=== PATIENT | male | born 1960 | race Caucasian/White ===

== ENCOUNTER 2024-01-14 14:13 | Emergency (ER) | payer SELFPAY ==
[~2024-01-14] VITALS: Ht 185.4 cm; Wt 95.0 kg
[2024-01-14 14:17] VITALS: O2SAT 98
[2024-01-14] MEDS: KETOROLAC 30MG/ML VIAL IM ONE (16:22)
[2024-01-14] MEDS ORDERED: NAPR500T7 MT (18:22)
[2024-01-14 19:05] VITALS: BP 133/77; PULSE 76; RESP 18; TEMP 98
== END 2024-01-14 19:19 | disposition home or self-care (01) ==
LOC: ER 14:13
DX: M54.2 Cervicalgia (principal); I10 Essential (primary) hypertension; Z98.890 Other specified postprocedural states
CPT/HCPCS: 99285; 72125; 96372; J1885

== ENCOUNTER 2024-06-03 18:28 | Inpatient (IN) | payer MEDICAID, OTHER ==
[~2024-06-03] VITALS: Ht 185.4 cm; Wt 90.7 kg
[~2024-06-03 18:28] MED LIST: NAPR500T7 MT
[2024-06-03] MEDS: ONDANSETRON HCL 4MG/2ML INJ IV STA (19:35)
[2024-06-03] MEDS: MORPHINE SULFATE 4 MG/ML INJ (FOR IV/IM USE) IV STA (19:35)
[2024-06-03 19:41] LABS: BASOPHILS % 0.4 % (0.0-2.0); EOSINOPHILS % 3.8 % (0.0-5.0); HEMATOCRIT. 42.7 % (42.0-52.0); HEMOGLOBIN. 14.4 g/dL (14.0-18.0); LYMPHOCYTES % 44.2 % (20.0-50.0); MEAN CORPUSCULAR HEMOGLOBIN 31.4 pg (28.0-32.0); MEAN CORPUSCULAR HGB CONC 33.8 g/dL (31.0-37.0); MEAN CORPUSCULAR VOLUME 92.9 fL (80.0-94.0); MEAN PLATELET VOLUME 8.9 fl (7.4-10.4); MONOCYTES % 5.5 % (2.0-8.0); NEUTROPHILS % 46.1 % (40.0-76.0); PLATELET 264 x1000/uL (130-400); RED BLOOD CELL COUNT 4.59 mill/uL (4.7-6.1); RED CELL DISTRIBUTION WIDTH 13.4 % (11.6-14.6); WHITE BLOOD COUNT 8.2 x1000/uL (4.5-11.0)
[2024-06-03 19:44] LABS: CHLORIDE 108 mEq/L (98-107); POTASSIUM 3.7 mEq/L (3.5-5.1); SODIUM 139 mEq/L (136-145)
[2024-06-03 19:45] LABS: CARBON DIOXIDE 24 mEq/L (21-32)
[2024-06-03 19:46] LABS: CALCIUM 9.1 mg/dL (8.7-10.4)
[2024-06-03 19:50] LABS: GLUCOSE 137 mg/dL (70-105); UREA NITROGEN BLOOD 11 mg/dL (9-23)
[2024-06-03 20:18] LABS: PROTHROMBIN TIME 10.8 sec (9.6-11.0)
[2024-06-03 22:40] VITALS: BP 133/95; PULSE 70; RESP 19; TEMP 36.5848
[2024-06-04] VITALS: BP 144/97; PULSE 103; RESP 18; TEMP 36.50292; O2SAT 96
[2024-06-04 02:25] LABS: BASOPHILS % 0.4 % (0.0-2.0); EOSINOPHILS % 0.8 % (0.0-5.0); HEMATOCRIT. 40.5 % (42.0-52.0); HEMOGLOBIN. 13.7 g/dL (14.0-18.0); LYMPHOCYTES % 21.6 % (20.0-50.0); MEAN CORPUSCULAR HEMOGLOBIN 31.6 pg (28.0-32.0); MEAN CORPUSCULAR HGB CONC 33.7 g/dL (31.0-37.0); MEAN CORPUSCULAR VOLUME 93.8 fL (80.0-94.0); MEAN PLATELET VOLUME 8.7 fl (7.4-10.4); MONOCYTES % 8.5 % (2.0-8.0); NEUTROPHILS % 68.7 % (40.0-76.0); PLATELET 236 x1000/uL (130-400); RED BLOOD CELL COUNT 4.32 mill/uL (4.7-6.1); RED CELL DISTRIBUTION WIDTH 13.6 % (11.6-14.6); WHITE BLOOD COUNT 9.2 x1000/uL (4.5-11.0)
[2024-06-04 02:39] LABS: CHLORIDE 110 mEq/L (98-107); POTASSIUM 4.1 mEq/L (3.5-5.1); SODIUM 140 mEq/L (136-145)
[2024-06-04 02:40] LABS: CARBON DIOXIDE 25 mEq/L (21-32)
[2024-06-04 02:41] LABS: CALCIUM 9.1 mg/dL (8.7-10.4)
[2024-06-04 02:45] LABS: CREATININE 0.9 mg/dL (0.6-1.3); GLUCOSE 137 mg/dL (70-105)
[2024-06-04 02:46] LABS: UREA NITROGEN BLOOD 10 mg/dL (9-23)
[2024-06-04 02:47] LABS: ALANINE AMINOTRANSFERASE 13 IU/L (10-49); ASPARTATE AMINOTRANSFERASE 16 IU/L (<34)
[2024-06-04 02:48] LABS: ALBUMIN 4.1 g/dL (3.2-4.8); BILIRUBIN TOTAL 0.4 mg/dL (0.1-1.0); PROTEIN TOTAL 6.6 g/dL (6.0-8.3)
[2024-06-04 04:00] VITALS: BP 138/92; PULSE 82; RESP 18; TEMP 36.16956; O2SAT 98
[2024-06-04] MEDS: CEFTRIAXONE 1GM/50ML 50 ML IV SCH (04:32)
[2024-06-04 07:06] LABS: CLARITY URINE CLOUDY (CLEAR); COLOR URINE YELLOW (YELLOW); GLUCOSE URINE NEGATIVE (NEGATIVE); KETONES URINE TRACE (NEGATIVE); LEUKOCYTE ESTERASE URINE 1+ (NEGATIVE); NITRITE URINE NEGATIVE (NEGATIVE); OCCULT BLOOD URINE 3+ (NEGATIVE); PH URINE 5.5 (4.5-8.0); PROTEIN URINE 1+ (NEGATIVE); SPECIFIC GRAVITY URINE 1.015 (1.005-1.030); UROBILINOGEN URINE 0.2 E.U./dL (0.2-1.0)
[2024-06-04 07:24] LABS: BACTERIA URINE 2+; RBC URINE 50-100 /hpf (0-2); SQUAMOUS EPITHELIAL CELL URINE NONE SEEN /lpf (RARE/1+); WBC URINE 15-25 /hpf (0-2); YEAST URINE NONE SEEN
[2024-06-04 12:00] VITALS: BP 144/85; PULSE 76; RESP 18; TEMP 36.3918; TEMP 36.39180; O2SAT 98
[2024-06-04] MEDS ORDERED: CLONIDINE 0.1MG TABLET PO PRN (13:45)
[2024-06-04] MEDS ORDERED: IPRATROPIUM/ALBUTEROL 0.5-3(2.5)MG/3ML NEB HHN PRN (13:45)
[2024-06-04] MEDS ORDERED: ACETAMINOPHEN 325MG TABLET PO PRN ×2 (13:45)
[2024-06-04] MEDS ORDERED: DOCUSATE SODIUM 100MG CAPSULE PO PRN (13:45)
[2024-06-04] MEDS ORDERED: ONDANSETRON HCL 4MG/2ML INJ IV PRN (13:45)
[2024-06-04] MEDS ORDERED: LEVO-65 MT (13:49)
[2024-06-04] MEDS ORDERED: DILTIAZEM HCL 30MG TABLET PO SCH (14:00)
[2024-06-04 18:15] VITALS: BP 144/80; PULSE 75; TEMP 97.9; O2SAT 99
== END 2024-06-04 18:50 | disposition home or self-care (01) | DRG 466 ==
LOC: ER 18:28 → 5WST 20:41 → EDBEDREQTM 20:45 → EDBEDREQ 20:45 → 6EST 22:20
PROVIDERS: ADMIT Internal Medicine; ATTEND Internal Medicine
DX: T83.83XA Hemorrhage due to genitourinary prosthetic devices, implants and grafts, initial encounter (principal); K76.0 Fatty (change of) liver, not elsewhere classified; I10 Essential (primary) hypertension; N40.0 Benign prostatic hyperplasia without lower urinary tract symptoms; Y84.6 Urinary catheterization as the cause of abnormal reaction of the patient, or of later complication, without mention of misadventure at the time of the procedure; N39.0 Urinary tract infection, site not specified; Z79.899 Other long term (current) drug therapy; Z88.8 Allergy status to other drugs, medicaments and biological substances; Y92.89 Other specified places as the place of occurrence of the external cause
CPT/HCPCS: 36415; 76700; 76857; 80048; 80053; 81003; 85025; 86850; 86900; 87186; 99285; J0696; J2270; J2405

== ENCOUNTER 2025-01-16 00:13 | Emergency (ER) | payer OTHER ==
[~2025-01-16] VITALS: Ht 185.4 cm; Wt 91.0 kg
[~2025-01-16 00:13] MED LIST changes: +ASPI-1497 MT; +HYDR12.54 PO; +LIP40 MT; +LISI10TA26 PO; +METO-396 PO; -NAPR500T7 MT
[2025-01-16 00:18] VITALS: O2SAT 99
[2025-01-16 01:21] LABS: BASOPHILS % 0.5 % (0.0-2.0); EOSINOPHILS % 0.8 % (0.0-5.0); HEMATOCRIT. 50.2 % (42.0-52.0); HEMOGLOBIN. 16.5 g/dL (14.0-18.0); LYMPHOCYTES % 39.6 % (20.0-50.0); MEAN CORPUSCULAR HEMOGLOBIN 31.7 pg (28.0-32.0); MEAN CORPUSCULAR HGB CONC 32.8 g/dL (31.0-37.0); MEAN CORPUSCULAR VOLUME 96.5 fL (80.0-94.0); MONOCYTES % 5.8 % (2.0-8.0); NEUTROPHILS % 53.3 % (40.0-76.0); PLATELET 256 x1000/uL (130-400); RED CELL DISTRIBUTION WIDTH 12.9 % (11.6-14.6); WHITE BLOOD COUNT 12.9 x1000/uL (4.5-11.0)
[2025-01-16 01:22] LABS: POTASSIUM 4.1 mEq/L (3.5-5.1)
[2025-01-16 01:28] LABS: CREATININE 1.3 mg/dL (0.6-1.3)
[2025-01-16 01:41] LABS: PROTHROMBIN TIME 11.2 sec (9.6-11.0)
[2025-01-16 02:11] LABS: CLARITY URINE TURBID (CLEAR); COLOR URINE ORANGE (YELLOW); GLUCOSE URINE NEGATIVE (NEGATIVE); KETONES URINE NEGATIVE (NEGATIVE); LEUKOCYTE ESTERASE URINE 2+ (NEGATIVE); NITRITE URINE NEGATIVE (NEGATIVE); OCCULT BLOOD URINE 3+ (NEGATIVE); PROTEIN URINE 4+ (NEGATIVE); SPECIFIC GRAVITY URINE 1.026 (1.005-1.030); UROBILINOGEN URINE 0.2 E.U./dL (0.2-1.0)
[2025-01-16 02:25] LABS: RBC URINE 50-100 /hpf (0-2); SQUAMOUS EPITHELIAL CELL URINE NONE SEEN /lpf (RARE/1+); WBC URINE 15-25 /hpf (0-2)
[2025-01-16 02:27] LABS: BACTERIA URINE TRACE
[2025-01-16] MEDS ORDERED: AMOX1TAB16 MT (02:30)
[2025-01-16 02:46] VITALS: BP 132/84; PULSE 90; RESP 16; TEMP 36.6; O2SAT 99
== END 2025-01-16 07:47 | disposition home or self-care (01) ==
LOC: ER 00:26
DX: R31.9 Hematuria, unspecified (principal); Z79.82 Long term (current) use of aspirin; Z79.899 Other long term (current) drug therapy
CPT/HCPCS: 36415; 80048; 81003; 85025; 99283

== ENCOUNTER 2025-01-23 04:46 | Emergency (ER) | payer OTHER ==
[~2025-01-23] VITALS: Ht 188 cm; Wt 82.0 kg
[~2025-01-23 04:46] MED LIST changes: +AMOX1TAB16 MT
[2025-01-23 05:07] VITALS: O2SAT 97
[2025-01-23 07:03] LABS: CLARITY URINE CLEAR (CLEAR); COLOR URINE YELLOW (YELLOW); GLUCOSE URINE NEGATIVE (NEGATIVE); KETONES URINE TRACE (NEGATIVE); LEUKOCYTE ESTERASE URINE 1+ (NEGATIVE); NITRITE URINE NEGATIVE (NEGATIVE); OCCULT BLOOD URINE NEGATIVE (NEGATIVE); PH URINE 5.5 (4.5-8.0); PROTEIN URINE NEGATIVE (NEGATIVE); SPECIFIC GRAVITY URINE 1.021 (1.005-1.030)
[2025-01-23 07:16] LABS: SQUAMOUS EPITHELIAL CELL URINE FEW /lpf (RARE/1+)
[2025-01-23 07:17] LABS: WBC URINE 0-2 /hpf (0-2)
[2025-01-23 07:18] LABS: BACTERIA URINE NONE SEEN; RBC URINE 0-2 /hpf (0-2)
[2025-01-23 07:49] LABS: BASOPHILS % 0.3 % (0.0-2.0); EOSINOPHILS % 0.6 % (0.0-5.0); HEMATOCRIT. 50.1 % (42.0-52.0); HEMOGLOBIN. 16.5 g/dL (14.0-18.0); LYMPHOCYTES % 27.3 % (20.0-50.0); MEAN CORPUSCULAR HEMOGLOBIN 31.2 pg (28.0-32.0); MEAN CORPUSCULAR VOLUME 94.4 fL (80.0-94.0); MEAN PLATELET VOLUME 8.7 fl (7.4-10.4); MONOCYTES % 4.9 % (2.0-8.0); NEUTROPHILS % 66.9 % (40.0-76.0); PLATELET 235 x1000/uL (130-400); WHITE BLOOD COUNT 10.2 x1000/uL (4.5-11.0)
[2025-01-23 08:05] LABS: CHLORIDE 105 mEq/L (98-107); POTASSIUM 4.6 mEq/L (3.5-5.1); SODIUM 138 mEq/L (136-145)
[2025-01-23 08:06] LABS: CALCIUM 10.2 mg/dL (8.7-10.4); CARBON DIOXIDE 27 mEq/L (21-32)
[2025-01-23 08:11] LABS: CREATININE 1.1 mg/dL (0.6-1.3); GLUCOSE 125 mg/dL (70-105); UREA NITROGEN BLOOD 15 mg/dL (9-23)
[2025-01-23 08:16] LABS: TROPONIN I HIGH SENSITIVITY < 4 ng/L (3.0-53)
[2025-01-23 09:59] LABS: TROPONIN I HIGH SENSITIVITY < 4 ng/L (3.0-53)
[2025-01-23] MEDS ORDERED: ACETAMINOPHEN 325MG TABLET PO PRN (13:45)
[2025-01-23 13:51] VITALS: BP 147/97; PULSE 90; RESP 18; TEMP 36.7; O2SAT 97
[2025-01-23] MEDS ORDERED: PANTOPRAZOLE SODIUM 40 MG/VIAL IV SCH (14:00)
[2025-01-23] MEDS ORDERED: ASPIRIN 81MG EC TABLET PO SCH (14:00)
[2025-01-23] MEDS ORDERED: LISINOPRIL 10MG TABLET PO SCH (14:00)
[2025-01-23] MEDS ORDERED: HYDROCHLOROTHIAZIDE 12.5MG CAPSULE PO SCH (14:00)
[2025-01-23] MEDS ORDERED: CEFTRIAXONE 1GM/50ML 50 ML IV SCH (14:00)
[2025-01-23] MEDS ORDERED: ENOXAPARIN 40MG/0.4ML SYR SUBCUT SCH (14:00)
[2025-01-23] MEDS ORDERED: ATORVASTATIN CALCIUM 40MG TABLET PO SCH (21:00)
[2025-01-24] MEDS ORDERED: METOPROLOL SUCCINATE 25MG ER TABLET PO SCH (09:00)
[2025-01-24] MEDS ORDERED: MEDICATION NOT ON FORMULARY EA (Hydrochlorothiazide 12.5 MG) PO SCH (09:00)
== END 2025-01-23 14:07 | disposition short-term general hospital (02) ==
LOC: ER 04:46 → EDBEDREQ 12:35 → EDBEDREQTM 12:35 → ER 14:07
DX: M54.2 Cervicalgia (principal); F41.9 Anxiety disorder, unspecified; I10 Essential (primary) hypertension; M47.812 Spondylosis without myelopathy or radiculopathy, cervical region; Z79.82 Long term (current) use of aspirin; Z79.899 Other long term (current) drug therapy
CPT/HCPCS: 36415; 71045; 80048; 81003; 84484; 85025; 99285

== ENCOUNTER 2025-07-17 11:13 | Emergency (ER) | payer OTHER ==
[~2025-07-17] VITALS: Ht 172.7 cm; Wt 82.0 kg
[2025-07-17 11:16] VITALS: O2SAT 98
[2025-07-17 12:24] LABS: BASOPHILS % 0.3 % (0.0-2.0); EOSINOPHILS % 0.4 % (0.0-5.0); HEMATOCRIT. 49.4 % (42.0-52.0); HEMOGLOBIN. 16.4 g/dL (14.0-18.0); LYMPHOCYTES % 13.3 % (20.0-50.0); MEAN PLATELET VOLUME 8.4 fl (7.4-10.4); MONOCYTES % 2.1 % (2.0-8.0); NEUTROPHILS % 83.9 % (40.0-76.0); PLATELET 240 x1000/uL (130-400); RED BLOOD CELL COUNT 5.23 mill/uL (4.7-6.1); RED CELL DISTRIBUTION WIDTH 13.4 % (11.6-14.6)
[2025-07-17 12:39] LABS: CREATININE 1.2 mg/dL (0.6-1.3)
[2025-07-17 12:40] LABS: UREA NITROGEN BLOOD 15 mg/dL (9-23)
[2025-07-17 12:42] LABS: ASPARTATE AMINOTRANSFERASE 23 IU/L (<34); BILIRUBIN DIRECT 0.3 mg/dL (<=3.0); BILIRUBIN TOTAL 1.0 mg/dL (0.1-1.0); PROTEIN TOTAL 7.4 g/dL (6.0-8.3)
[2025-07-17 13:55] LABS: CLARITY URINE CLEAR (CLEAR); COLOR URINE YELLOW (YELLOW); GLUCOSE URINE NEGATIVE (NEGATIVE); KETONES URINE NEGATIVE (NEGATIVE); LEUKOCYTE ESTERASE URINE 1+ (NEGATIVE); NITRITE URINE NEGATIVE (NEGATIVE); OCCULT BLOOD URINE 2+ (NEGATIVE); PH URINE 5.5 (4.5-8.0); PROTEIN URINE NEGATIVE (NEGATIVE); SPECIFIC GRAVITY URINE 1.015 (1.005-1.030); UROBILINOGEN URINE 0.2 E.U./dL (0.2-1.0)
[2025-07-17 14:18] LABS: BACTERIA URINE TRACE; RBC URINE 25-50 /hpf (0-2); SQUAMOUS EPITHELIAL CELL URINE RARE /lpf (RARE/1+); YEAST URINE NONE SEEN
[2025-07-17] MEDS ORDERED: SULF1TAB48 MT (14:36)
[2025-07-17] MEDS: ACETAMINOPHEN 500MG TABLET PO ONE (16:00)
[2025-07-17 17:37] VITALS: BP 144/88; PULSE 92; RESP 16; TEMP 36.6; O2SAT 98
== END 2025-07-17 17:38 | disposition home or self-care (01) ==
LOC: ER 11:13
DX: N39.0 Urinary tract infection, site not specified (principal); Z79.82 Long term (current) use of aspirin; Z79.899 Other long term (current) drug therapy; Z98.890 Other specified postprocedural states
CPT/HCPCS: 36415; 80048; 80076; 81003; 85025; 87077; 87186; 99283